=== PATIENT | male | born 1950 | race Caucasian/White ===

== ENCOUNTER → 2017-02-06 16:57 | Outpatient (CLI) | payer MEDICARE, BC ==
[2013-12-10 06:57] VITALS: BMI 32.5
[~2017-02-06 16:57] MED LIST: ALEVE220 MG PO; BAYER ASPIRIN325 MG PO; GEMFIBROZIL600 MG PO; HYDROCODONE-APA1 TAB PO; METOPROLOL TART50 MG PO; ZOCOR40 MG PO
[2017-02-06 19:01] LABS: CHOL - HDL RATIO 6.1 ratio (2.3-4.9); LDL-HDL RATIO 2.9 ratio (1.5-3.5)
== END | disposition home or self-care (01) ==
LOC: D.LABREF 16:57
PROVIDERS: Internal Medicine Interventional Cardiology
DX: E78.5 Hyperlipidemia, unspecified (principal); Z12.5 Encounter for screening for malignant neoplasm of prostate